=== PATIENT | female | born 1965 | race Caucasian/White ===

== ENCOUNTER → 2016-07-23 | Outpatient (CLI) | payer BC ==
[~2016-07-23] MED LIST: ARMOUR THYROID120 MG; ESTROGEN; HYDROCHLOROTHIA25 MG PO; LISINOPRIL5 MG; OXYCODONE HCL30 MG PO; OXYCONTIN80 MG; PRENATAL1 TA1 PO; PRILOSEC
--- NOTE | ~2016-07-23 | CR170 ---
[facility] A Service of [facility] & [facility] RADIOLOGY TEXT RESULTS PATIENT: ROXIE FARMER LOCATION: [facility] : 61 UNIT #: [id number] AGE: [address]: Stephani KingP SEX: F ORDER DR: [id number] [facility] [address] [place], [place] [address] [id number] O MR#: [id number] Acc #: [id number] NAME: ROXIE FARMER : 1965 SEX: F STUDY DATE/TIME: 07/23/2016 14:16 UNIT: [facility] ROOM: STUDY DESCRIPTION: CR Knee 2 Views Rt Attending Physician: Stephani King A.P.R.N. Referring Physician: Stephani King A.P.R.N. Ordering Physician: Stephani King A.P.R.N. Primary Care Physician: Wally Ramos M.D. MEDICAL IMAGING REPORT This report is preliminary unless electronic signature is present EXAM Right knee 2 views INDICATION Right knee pain for 5 years. COMPARISON No comparisons FINDINGS There is a tiny knee joint effusion. Tricompartmental degenerative changes. No fracture or dislocation. IMPRESSION Degenerative changes as described. Dictated by... Pool Weber M.D. THIS IS AN ELECTRONICALLY VERIFIED REPORT Pool Weber M.D. at 07/23/2016 4:30 PM Laz TD: 07/23/2016 15:25 JOB #: [id number] MEDICAL IMAGING REPORT Page 1 of 1 COPY
--- NOTE | ~2016-07-23 | CR181 ---
[facility] A Service of [facility] & [facility] RADIOLOGY TEXT RESULTS PATIENT: ROXIE FARMER LOCATION: [facility] : 61 UNIT #: [id number] AGE: [address]: Stephani KingP SEX: F ORDER DR: [id number] [facility] [address] [place], [place] [address] [id number] O MR#: [id number] Acc #: [id number] NAME: ROXIE FARMER : 1965 SEX: F STUDY DATE/TIME: 07/23/2016 14:16 UNIT: [facility] ROOM: STUDY DESCRIPTION: CR Lumbar Spine 2 or 3 Views Attending Physician: Stephani King A.P.R.N. Referring Physician: Stephani King A.P.R.N. Ordering Physician: Stephani King A.P.R.N. Primary Care Physician: Wally Ramos M.D. MEDICAL IMAGING REPORT This report is preliminary unless electronic signature is present EXAM Lumbar spine 3 views INDICATIONS 50-year-old female with back pain for 15 years. No comparisons. FINDINGS There is multilevel degenerative disc space narrowing. This is greatest in the lower lumbar spine. Lower lumbar spine facet arthropathy. Vertebral body heights are maintained. There is minimal rightward curve. IMPRESSION Degenerative changes as described Dictated by... Pool Weber M.D. THIS IS AN ELECTRONICALLY VERIFIED REPORT Pool Weber M.D. at 07/23/2016 4:30 PM ARS/yuer TD: 07/23/2016 15:31 JOB #: [id number] MEDICAL IMAGING REPORT Page 1 of 1 COPY
== END | disposition home or self-care (01) ==
LOC: CRAD 14:03
DX: M54.5 Low back pain (principal); M47.816 Spondylosis without myelopathy or radiculopathy, lumbar region; M17.11 Unilateral primary osteoarthritis, right knee
CPT/HCPCS: 72100; 73560